=== PATIENT | female | born 1990 | race Two or more races ===

== ENCOUNTER 2021-04-05 23:21 | Emergency (ER) | payer OTHER ==
[2021-04-05 23:45] VITALS: BP 111/70; PULSE 66; TEMP 97; BMI 27.4
[2021-04-06] MEDS ORDERED: ACETAMINOPHEN 500 MG TABLET (FP) PO ONE (00:54)
[2021-04-06] MEDS ORDERED: ACETAMINOPHEN 325 MG TABLET (FP) ONE (01:09)
[2021-04-06] MEDS ORDERED: CYCLOBENZAPRINE HCL 10 MG TABLET (FP) ONE (01:09)
[2021-04-06] MEDS ORDERED: CYCLOBENZAPRINE HCL 10 MG TABLET (FP) PO SCH (01:15)
[2021-04-06] MEDS ORDERED: CYCLOBENZAPRINE HCL 5 MG TABLET PO SCH (06:00)
== END 2021-04-06 02:26 | disposition home or self-care (01) ==
LOC: JER 23:21
DX: R07.89 Other chest pain (principal); M54.2 Cervicalgia; V49.50XA Passenger injured in collision with unspecified motor vehicles in traffic accident, initial encounter; Y92.9 Unspecified place or not applicable
CPT/HCPCS: 71046-TC-FY; 99284-25